=== PATIENT | female | born 1975 | race Two or more races ===

== ENCOUNTER 2021-12-11 11:59 | Emergency (ER) | payer MEDICAID, OTHER ==
[~2021-12-11] VITALS: Ht 165.1 cm; Wt 77.2 kg
[2021-12-11 14:00] LABS: Basophils # (auto) 0.1 10 ^3/uL (0-0.2); Basophils % (auto) 0.8 % (0.0-2.0); Eosinophils # (auto) 0 10 ^3/uL (0-0.8); Eosinophils % (auto) 0.2 % (0.0-7.0); Hematocrit 37.8 % (36.0-46.0); Hemoglobin 12.6 g/dL (12.2-16.2); Lymphocytes # (auto) 1.3 10 ^3/uL (0.4-5.4); Lymphocytes % (auto) 9.2 % (10.0-50.0); Mean Corpuscular Hemoglobin 33.1 pg (28.0-32.0); Mean Corpuscular Hgb Conc. 33.4 g/dL (32.0-36.0); Monocytes # (auto) 0.7 10 ^3/uL (0-1.3); Monocytes % (auto) 4.9 % (0.0-12.0); Neutrophils # (auto) 11.8 10 ^3/uL (1.6-8.6); Neutrophils % (auto) 84.9 % (37.0-80.0); Red Blood Cells 3.81 10^6/uL (4.0-5.20); Red Cell Distribution Width 12.5 % (11.8-14.3); White Blood Cell 13.9 10^3/uL (4.4-10.8)
[2021-12-11 14:02] LABS: Urine Bacteria NONE SEEN /hpf (None Seen); Urine Blood Negative /uL (Negative); Urine Specific Gravity 1.014 (1.001-1.035); Urine WBC <1 /hpf (0 - 5)
[2021-12-11 14:27] LABS: Albumin 3.8 g/dL (3.4-5.0); Calcium 8.6 mg/dL (8.5-10.1); Potassium 4.1 mmol/L (3.5-5.1)
[2021-12-11 14:31] LABS: BUN/Creatinine Ratio 5.8; Bilirubin, Total 0.9 mg/dL (0.2-1.0)
[2021-12-11] MEDS ORDERED: METR500T PO (15:38)
[2021-12-11] MEDS ORDERED: CIPR-173 PO (15:38)
[2021-12-11] MEDS ORDERED: HYDROcodone-ACET 5/325MG TAB PO ONE (15:45)
[2021-12-11 17:00] VITALS: BP 120/68
== END 2021-12-11 17:23 | disposition home or self-care (01) ==
LOC: ER 11:59
DX: K57.32 Diverticulitis of large intestine without perforation or abscess without bleeding (principal)
CPT/HCPCS: 36415; 74176; 80053; 81001; 83605; 83690; 84484; 84702; 85025